=== PATIENT | male | born 1955 | race Caucasian/White ===

== ENCOUNTER 2019-06-17 17:15 | Outpatient (REF) | payer BC, SELFPAY ==
[2019-06-17 19:43] LABS: ALT 52 U/L (16-63); LDL CHOLESTEROL 55 mg/dL (<100)
[2019-06-17 20:03] LABS: Creatine Kinase 239 U/L (39-308)
== END 2019-06-17 17:35 ==
LOC: NCHCN 17:15
PROVIDERS: PCP Internal Medicine; Visit Provider Internal Medicine
DX: I25.5 Ischemic cardiomyopathy (principal); I21.3 ST elevation (STEMI) myocardial infarction of unspecified site
CPT/HCPCS: 82550; 83721; 84460

== ENCOUNTER 2019-12-15 14:47 | Outpatient (REF) | payer OTHER, SELFPAY ==
[2019-12-15 19:52] LABS: ALT 46 U/L (16-63); Anion Gap 9.3 mmol/L (3-11); BUN 20 mg/dL (7-18); CO2 27.7 mmol/L (21.0-32.0); CREATININE 1.25 mg/dL (0.70-1.30); Calcium 9.2 mg/dL (8.5-10.1); Chloride 104 mmol/L (98-107); Estimated GFR 57.97 (mL/min/1.73m2); Glucose 93 mg/dL (74-106); LDL CHOLESTEROL 71 mg/dL (<100); Potassium 4.5 mmol/L (3.5-5.1); Sodium 141 mmol/L (136-145)
== END 2019-12-15 15:07 ==
LOC: NCHCN 14:47
PROVIDERS: PCP Internal Medicine; Visit Provider Internal Medicine
DX: I25.5 Ischemic cardiomyopathy (principal); F52.21 Male erectile disorder
CPT/HCPCS: 80048; 83721; 84460

== ENCOUNTER 2021-08-17 18:28 | Outpatient (REF) | payer BC, SELFPAY ==
[2021-08-17 20:54] LABS: Anion Gap 9.4 mmol/L (3-11); BUN 14 mg/dL (7-18); CO2 26.6 mmol/L (21.0-32.0); CREATININE 1.1 mg/dL (0.70-1.30); Calcium 9.3 mg/dL (8.5-10.1); Calculated LDL 73 mg/dL (<100); Chloride 105 mmol/L (98-107); Cholesterol 164 mg/dL (<200); Glucose 97 mg/dL (74-106); HDL Cholesterol 76 mg/dL (40-60); Potassium 4.3 mmol/L (3.5-5.1); Sodium 141 mmol/L (136-145); Triglyceride 76 mg/dL (<150)
== END 2021-08-17 18:29 | disposition home or self-care (01) ==
LOC: NCHCN 18:28
PROVIDERS: PCP Internal Medicine; Visit Provider Internal Medicine
DX: I25.5 Ischemic cardiomyopathy (principal); M66.3 Spontaneous rupture of flexor tendons; Z00.00 Encounter for general adult medical examination without abnormal findings
CPT/HCPCS: 80048; 80061

== ENCOUNTER 2021-11-02 15:04 | Outpatient (REF) | payer BC, SELFPAY ==
[2021-11-05 11:17] LABS: PSA, Screening 1.1 ng/mL (<=4.5)
== END 2021-11-02 15:05 | disposition home or self-care (01) ==
LOC: NCHCN 15:04
PROVIDERS: PCP Internal Medicine; Visit Provider Nurse Practitioner Family
DX: Z12.5 Encounter for screening for malignant neoplasm of prostate (principal); R10.32 Left lower quadrant pain
CPT/HCPCS: 84153

== ENCOUNTER 2023-02-24 18:23 | Outpatient (REF) | payer MEDICARE, SELFPAY ==
[2023-02-24 21:10] LABS: ALT 42 U/L (16-63); AST 31 U/L (15-37); Albumin 4.3 g/dL (3.4-5.0); Alkaline Phosphatase 62 U/L (46-116); Anion Gap 8.6 mmol/L (3-11); BUN 15 mg/dL (7-18); Bilirubin, Total 0.4 mg/dL (0.2-1.0); CO2 26.4 mmol/L (21.0-32.0); Calcium 9.2 mg/dL (8.5-10.1); Calculated LDL 65 mg/dL (<100); Chloride 102 mmol/L (98-107); Cholesterol 156 mg/dL (<200); Estimated GFR 81.47 (mL/min/1.73m2); Glucose 103 mg/dL (74-106); HDL Cholesterol 80 mg/dL (40-60); Potassium 4.3 mmol/L (3.5-5.1); Sodium 137 mmol/L (136-145); TSH 1.48 uIU/mL (0.36-3.74); Total Protein 7.8 g/dL (6.4-8.2); Triglyceride 57 mg/dL (<150); Vitamin B12 866 pg/mL (193-986)
[2023-02-24 21:29] LABS: Creatine Kinase 245 U/L (39-308)
== END 2023-02-24 18:24 | disposition home or self-care (01) ==
LOC: NCHCN 18:23
PROVIDERS: PCP Internal Medicine; Visit Provider Internal Medicine
DX: E78.5 Hyperlipidemia, unspecified (principal); I25.5 Ischemic cardiomyopathy; G62.9 Polyneuropathy, unspecified; Z00.00 Encounter for general adult medical examination without abnormal findings
CPT/HCPCS: 80053; 80061; 82550; 82607; 84443

== ENCOUNTER 2024-02-27 15:56 | Outpatient (REF) | payer MEDICARE, SELFPAY ==
[2024-02-27 18:22] LABS: HCT 38.2 % (40.0-50.0); HGB 13.6 g/dL (13.5-17.5); MCH 33.3 pg (27.0-33.0); MCHC 35.6 % (32.0-36.0); MCV 94 fL (80-95); MPV 9.1 fL (8.0-11.0); Platelet Count 276 10^3/uL (130-400); RBC 4.08 10^6/uL (4.36-5.78); RDW 13.1 % (11.8-14.1); RDW-SD 44.9 fL; WBC 5.16 10^3/uL (4.4-10.8)
[2024-02-27 18:43] LABS: ALT 33 U/L (16-63); Anion Gap 8.4 mmol/L (3-11); BUN 15 mg/dL (7-18); CO2 25.6 mmol/L (21.0-32.0); CREATININE 1.1 mg/dL (0.70-1.30); Calcium 9.3 mg/dL (8.5-10.1); Chloride 103 mmol/L (98-107); Creatine Kinase 351 U/L (39-308); Estimated GFR 72.22 (mL/min/1.73m2); Glucose 93 mg/dL (74-106); Potassium 4.1 mmol/L (3.5-5.1); Sodium 137 mmol/L (136-145)
[2024-02-27 19:02] LABS: Calculated LDL 64 mg/dL (<100); Cholesterol 155 mg/dL (<200); HDL Cholesterol 83 mg/dL (40-60); Triglyceride 43 mg/dL (<150)
== END 2024-02-27 15:57 | disposition home or self-care (01) ==
LOC: NCHCN 15:56
PROVIDERS: PCP Internal Medicine; Visit Provider Internal Medicine
DX: E78.5 Hyperlipidemia, unspecified (principal)
CPT/HCPCS: 80048; 80061; 82550; 85027; 84460

== ENCOUNTER 2024-03-02 16:16 | Outpatient (REF) | payer MEDICARE, SELFPAY ==
[2024-03-02 19:42] LABS: Abs Immature Grans 0.01 10^3/uL (0.0-0.06); Absolute Basophil Count 0.03 10^3/uL (0.0-0.2); Absolute Eosinophil Count 0.17 10^3/uL (0.0-0.7); Absolute Lymphocyte Count 1.21 10^3/uL (1.2-3.4); Absolute Monocyte Count 0.49 10^3/uL (0.1-0.8); Absolute Neutrophil Count 2.56 10^3/uL (1.2-6.7); Basophils % 0.7 %; Eosinophils % 3.8 %; HCT 39.9 % (40.0-50.0); HGB 14.2 g/dL (13.5-17.5); Immature Grans % 0.2 %; Lymphocytes % 27.1 %; MCH 33.8 pg (27.0-33.0); MCHC 35.6 % (32.0-36.0); MCV 95 fL (80-95); MPV 9.6 fL (8.0-11.0); Neutrophils % 57.2 %; Platelet Count 265 10^3/uL (130-400); RDW 13.1 % (11.8-14.1); RDW-SD 46.2 fL; Reticulocyte 0.7 % (0.5-2.4); WBC 4.47 10^3/uL (4.4-10.8)
[2024-03-02 20:08] LABS: Iron 91 ug/dL (65-175)
[2024-03-02 20:22] LABS: Ferritin 92 ng/mL (26-388); Folate > 20.0 ng/mL (8.6-20.0); Vitamin B12 775 pg/mL (193-986)
== END 2024-03-02 16:17 | disposition home or self-care (01) ==
LOC: NCHCN 16:16
PROVIDERS: PCP Internal Medicine; Visit Provider Internal Medicine
DX: D64.9 Anemia, unspecified (principal)
CPT/HCPCS: 85045; 82607; 82728; 82746; 83540; 85025

== ENCOUNTER 2024-10-15 23:24 | Outpatient (REF) | payer MEDICARE, SELFPAY ==
[2024-10-15 18:53] LABS: HCT 41.1 % (40.0-50.0); HGB 14.1 g/dL (13.5-17.5); MCH 32.9 pg (27.0-33.0); MCHC 34.3 % (32.0-36.0); MCV 96 fL (80-95); MPV 9.1 fL (8.0-11.0); Platelet Count 308 10^3/uL (130-400); RBC 4.29 10^6/uL (4.36-5.78); RDW 12.8 % (11.8-14.1); RDW-SD 45.5 fL; WBC 7.63 10^3/uL (4.4-10.8)
[2024-10-15 19:04] LABS: Anion Gap 9.5 mmol/L (3-11); BUN 18 mg/dL (7-18); CO2 27.5 mmol/L (21.0-32.0); CREATININE 1.1 mg/dL (0.70-1.30); Calcium 9.4 mg/dL (8.5-10.1); Calculated LDL 67 mg/dL (<100); Chloride 104 mmol/L (98-107); Cholesterol 181 mg/dL (<200); Estimated GFR 72.22 (mL/min/1.73m2); Glucose 96 mg/dL (74-106); HDL Cholesterol 89 mg/dL (>or=40); Potassium 4.3 mmol/L (3.5-5.1); Sodium 141 mmol/L (136-145); Triglyceride 127 mg/dL (<150)
== END 2024-10-15 23:25 | disposition home or self-care (01) ==
LOC: NCHCN 23:24
PROVIDERS: PCP Internal Medicine; Visit Provider Internal Medicine
DX: E78.5 Hyperlipidemia, unspecified (principal); R03.0 Elevated blood-pressure reading, without diagnosis of hypertension
CPT/HCPCS: 80048; 80061; 85027